=== PATIENT | male | born 1990 | race Caucasian/White ===

== ENCOUNTER 2017-10-02 22:02 | Emergency (ER) | payer OTHER ==
[~2017-10-02] VITALS: Ht 165.1 cm; Wt 80.7 kg
[2017-10-02 22:05] VITALS: BP 120/85
[2017-10-02] MEDS ORDERED: HYDROCORTISONE ACETATE 25 MG/SUPP.RECT SUPP.RECT RC ONE ×2 (23:12→23:30)
== END 2017-10-02 23:40 | disposition home or self-care (01) ==
LOC: ER 22:02
DX: K64.8 Other hemorrhoids (principal)
CPT/HCPCS: 99282; A4606; Z7610

== ENCOUNTER 2018-02-12 18:50 | Emergency (ER) | payer OTHER ==
[~2018-02-12] VITALS: Ht 165.1 cm; Wt 82.6 kg
[2018-02-12 18:50] VITALS: BP 142/88
== END 2018-02-12 20:02 | disposition home or self-care (01) ==
LOC: ER 18:53
DX: N48.1 Balanitis (principal)
CPT/HCPCS: 82962-TC; A4606; Z7610